=== PATIENT | female | born 1990 | race African-American/Black ===

== ENCOUNTER 2016-10-05 10:25 | Emergency (ER) | payer OTHER ==
[~2016-10-05] VITALS: Ht 160 cm; Wt 76.0 kg
[~2016-10-05 10:25] MED LIST: FLEXERIL5 MG PO; NAPROSYN500 MG PO; TRAMADOL HCL50 MG PO
[2016-10-05 10:45] VITALS: BP 128/84
== END 2016-10-05 11:58 | disposition left against medical advice (07) ==
LOC: EME 10:25
DX: M54.9 Dorsalgia, unspecified (principal); V49.40XA Driver injured in collision with unspecified motor vehicles in traffic accident, initial encounter; Z53.21 Procedure and treatment not carried out due to patient leaving prior to being seen by health care provider